=== PATIENT | female | born 1960 | race Caucasian/White ===

== ENCOUNTER 2018-08-08 07:15 | Inpatient (IN) | payer BC ==
[2018-07-26 15:47] VITALS: BMI 28.8
[~2018-08-08 07:15] MED LIST: ACETAMINOPHEN TAB 500 MG TAB PO ONE; DEXAMETHASONE SOD PHOSPHATE 10 MG/ML 1 ML VIAL IV ONE; HYDROmorphone 0.5 MG/0.5 ML SYRINGE IVP PRN; LIDOCAINE 1% 20 ML VIAL (10MG/ML) FOR IV START INTRADERMA PRN; MELOXICAM 7.5 MG TAB PO ONE; MIDAZOLAM (PF) 2 MG/2 ML VIAL IV PRN; ONDANSETRON 4 MG/2 ML VIAL IVP ONE; ROPIVACAINE 246.25 MG, EPINEPHrine 0.5 MG, KETOROLAC 30 MG, cloNIDine HCL/PF 80 MCG, WA... MISCELLANE ONE; SCOPOLAMINE 1.5MG/72HR PATCH TRANSDERM ONE; TRANEXAMIC ACID 1,000 MG in SODIUM CHLORIDE 0.9% 100 ML IVPB ONE; ceFAZolin IN SWFI 2 GM/20 ML SYRINGE IVP ONE
[2018-08-08 08:07] VITALS: RESP 16
[2018-08-08] MEDS: LACTATED RINGERS 1,000 ML IV SCH (08:20)
[2018-08-08] MEDS ORDERED: LIDOCAINE 1% 20 ML VIAL (10MG/ML) FOR IV START SQ ONE (08:21)
[2018-08-08] MEDS ORDERED: HYDROmorphone 0.5 MG/0.5 ML SYRINGE IVP PRN ×2 (08:46)
[2018-08-08] MEDS ORDERED: DIAZEPAM 5 MG TAB PO PRN (08:46)
[2018-08-08] MEDS ORDERED: HYDROcodone/APAP 5-325MG 1 EACH TAB PO PRN (08:46)
[2018-08-08] MEDS ORDERED: NALOXONE 0.4 MG/ML 1 ML VIAL IV PRN (08:46)
[2018-08-08] MEDS ORDERED: ONDANSETRON 4 MG/2 ML VIAL IVP PRN (08:46)
[2018-08-08] MEDS ORDERED: hydrOXYzine PAMOATE 25 MG CAP PO PRN (08:46)
[2018-08-08] MEDS ORDERED: HYDROmorphone 1 MG/ML 1 ML SYRINGE IVP PRN (08:46)
[2018-08-08] MEDS ORDERED: MAGNESIUM HYDROXIDE 2,400 MG/10 ML CUP PO PRN (08:46)
[2018-08-08] MEDS ORDERED: SODIUM CHLORIDE 0.9% 1,000 ML IV SCH (09:00)
[2018-08-08] MEDS ORDERED: HEPARIN SODIUM,PORCINE 5,000 UNIT/ML 1 ML VIAL ONE (09:15)
[2018-08-08] MEDS ORDERED: MIDAZOLAM 2 MG/2 ML VIAL ONE (09:15)
[2018-08-08] MEDS ORDERED: fentaNYL (PF) 50 MCG/ML 2 ML AMP ONE (09:15)
[2018-08-08] MEDS ORDERED: SODIUM CHLORIDE 0.9% 100 ML BAG ONE (09:15)
[2018-08-08] MEDS ORDERED: PHENYLEPHRINE-0.9% NACL SYG 1 MG/10 ML SYRINGE ONE (09:15)
[2018-08-08] MEDS ORDERED: TRANEXAMIC ACID 1,000 MG/10 ML VIAL ONE (09:15)
[2018-08-08] MEDS ORDERED: LIDOCAINE 1% INJ 10MG/ML (20 ML MDV) ONE (09:15)
[2018-08-08] MEDS ORDERED: PROPOFOL 10 MG/ML 20 ML VIAL IV ONE (09:15)
[2018-08-08] MEDS ORDERED: LACTATED RINGERS 1,000 ML BAG IV ONE (09:15)
[2018-08-08] MEDS ORDERED: ceFAZolin 3,000 MG in SODIUM CHLORIDE 0.9% IRRIGATIO 3,000 ML IRRIGATION ONE (09:20)
[2018-08-08] MEDS ORDERED: LACTATED RINGERS 1,000 ML IV ONE (10:00)
--- NOTE | 2018-08-08 10:35 | P.OP ---
Date of Procedure: 08/08/18 Preoperative Diagnosis: Severe osteoarthritis right hip Postoperative Diagnosis: Severe osteoarthritis right hip Procedure(s) Performed: Right total hip arthroplasty with a direct anterior approach Implants: Ponce and nephew Polarstem size 4 standard Ponce & Nephew R3, 3 hole acetabular shell, 48 mm Ponce & Nephew reflection 6.5 mm cancellus screw, 20 mm, 25 mm Ponce & Nephew R3, XLPE 20 acetabular liner Ponce & Nephew Oxinium femoral head 32 m, -3 All components were press-fit. The articulation is Oxinium on polyethylene. Anesthesia: spinal Surgeon: Alireza Wagoner Flyer Repairer #1: Jazmine Walter Estimated Blood Loss (ml): 150 (68 mL returned with Cell Saver) Pathology: other (femoral head) Condition: stable Disposition: PACU Indications for Procedure: After failure of conservative treatment we discussed the surgical and nonsurgical treatment options at length. Patient wishes to proceed with a total hip arthroplasty with a direct anterior approach. Complications specific to this procedure were discussed at length, including but not limited to infection, leg length discrepancy, dislocation, and nerve injury. Patient is aware of all these complications and informed consent was obtained Operative Findings: The operative findings are consistent with severe osteoarthritis of the right hip Description of Procedure: Patient was seen and evaluated in the preoperative area, consent was reviewed, and the surgical site was marked with a skin marker. Patient was then brought to the operating room and given prophylactic antibiotics intravenously. 1 g of Tranexamic acid was also given. A spinal anesthetic was administered by the anesthesia department. The patient was then placed on the [place] table with the bony prominences well-padded. The hip area was then prepped and draped in usual sterile fashion. A universal timeout was then performed, which confirmed the patient's name, surgical site, ALLERGIES, and procedure being performed. Next the incision site was located at 1 cm distal and 1 cm lateral to the anterior superior iliac spine. The skin and subcutaneous tissues were sharply incised. Incision was carefully dissected down to the fascia overlying the tensor fascia micah muscle. This fascia was then incised in line with the incision. Next, using blunt finger dissection, the tensor fascia micah muscle was dissected off its investing fascia. The muscle was then carefully retracted laterally with a cobra retractor over the lateral neck of the femur. Next, the circumflex vessels were identified and cauterized using the AquaMantis device. The anterior hip capsule was then exposed. The capsule was then opened and an inverted T fashion. Cobra retractors were then placed intracapsularly. The proximal femur was then visualized. The femoral neck was then osteotomized appropriate level above the lesser trochanter. Small amount of traction was placed with the [place] table. A small wedge of bone was then removed from the remaining femoral head. Next, using a corkscrew femoral head was easily removed from the acetabulum. On gross visual inspection, the femoral head had complete loss of articular cartilage in multiple periarticular osteophytes. Attention was then turned to the acetabulum. the acetabulum was exposed and any remaining labrum was excised. Sequential reaming of the acetabulum was performed using fluoroscopic guidance. When the appropriate size was reached, a trial was then placed. The position and fit of the trial was checked with fluoroscopy. The trial was then removed. Then, us ing fluoroscopic guidance, the final implant was impacted at 20 of anteversion and 40 of abduction, and fully seated in the acetabulum. 2 screws were then placed in the acetabulum. Again fluoroscopy was used to check position of the screws. Next, the liner was then impacted, with a 20 elevated liner located in the anterior superior quadrant. Component locking was confirmed. Attention was then directed to the femur. With the aid of the [place] table, the femur was externally rotated to approximately 130, extended, and abducted under the opposite leg. A side hook was then placed under the proximal femur, and the side hook elevator was used to elevate the proximal femur. Retractors were then placed. A capsular release was performed, as well as a release of the conjoined tendon, which afforded excellent visualization of the proximal femur. Next, a box osteotome was used to lateralize the proximal femur. A hand mica plate layer was then used to locate the femoral canal. Sequential broaching was then performed with appropriate size which afforded excellent fixation in the proximal femur. A trial was then placed with appropriate head and neck, and the hip was gently reduced with the aid of the [place] table. Fluoroscopy was then used to check position of the components, as well as to ensure equal leg lengths. The hip was then gently dislocated and the trials were then removed. Final implants were then impacted and the hip was again reduced. Final fluoroscopic x-rays confirmed that the components were in anatomic position, as well as equal leg lengths. The hip was also taken through range of motion, and found to be stable. The hip was then copiously irrigated with antibiotic solution with pulsatile lavage. The hip was then irrigated with Irrisept solution. The soft tissues were then injected with a ropivacaine solution, which consisted of 246.25 mg of ropivacaine, 0.5 mg of epinephrine, 30 mg of Toradol, 80 g of clonidine, and 48.45 mL of sterile water, for a total of 100 mL of fluid injected. A second dose of 1 g of Tranexamic acid was also given. the fascia was then closed with 2-0 strata fix suture. The subcutaneous tissue was closed with 3-0 Vicryl. The subcuticular tissue was closed with 3-0 strata fix suture. The skin was then closed with Dermabond glue and a sterile silver dressing. The patient was then transferred to the recovery room in stable condition. The administrative services assistant LÓPEZ Kebede was required due to the complexity of surgery, and the need for skilled assistant professor surgical technology for positioning, draping, exposure, retraction, and closure of the wound.
--- NOTE | 2018-08-08 11:23 | XR ---
EXAMINATION TYPE: XR Hip Limited RT DATE OF EXAM: 08/08/2018 COMPARISON: NONE HISTORY: 58-year-old female status post hip surgery, assess surgical alignment TECHNIQUE: Single AP portable view FINDINGS: Image shows placement of right total arthroplasty. The acetabular cup and femoral stem component of t he prosthesis appear well seated without periprosthetic fracture. Alignment grossly anatomic. Scatter ed soft tissue air compatible with recent operation. IMPRESSION: Uncomplicated postoperative appearance right total hip arthroplasty.
[2018-08-08] MEDS: ASPIRIN 325 MG TAB PO SCH ×2 (12:57→21:51)
--- NOTE | 2018-08-08 13:27 | XR ---
Limited right hip history: Hip replacement 2 intraoperative C-arm images document the procedure
--- NOTE | 2018-08-08 13:28 | FL ---
Fluoroscopy HISTORY: Hip replacement 48 seconds fluoroscopy time supplied to the referring clinician. 2 intraoperative C-arm images docum ent the procedure. See dictated report from orthopedic surgery.
[2018-08-08] MEDS: HYDROcodone/APAP 5-325MG 1 EACH TAB PO PRN ×2 (15:19→21:52)
[2018-08-08] MEDS: ceFAZolin IN SWFI 2 GM/20 ML SYRINGE IVP SCH (16:40)
[2018-08-08] MEDS ORDERED: SENNOSIDES-DOCUSATE SODIUM 1 EACH TAB PO SCH (21:00)
[2018-08-08] MEDS: CALCIUM CARBONATE 500 MG CHEWABLE PO SCH (21:51)
--- NOTE | 2018-08-09 00:17 | CONS ---
CONSULTATION DATE OF SERVICE: 08/08/2018 REASON FOR CONSULTATION: Advice regarding hypertension and hyperlipidemia and other medical issues requested by Dr. Wagoner. HISTORY OF PRESENT ILLNESS: This 58-year-old woman with a past medical history of hyperlipidemia, history of DJD, hypothyroidism, rapid heart rate, anxiety, underwent right total hip joint arthroplasty via direct anterior approach for severe DJD by Dr. Wagoner. There is no history of chest pain. No history of palpitations, headache, loss of consciousness, nausea, vomiting, and diarrhea. The patient had mild relative hypotension after surgery. PAST MEDICAL HISTORY: Hyperlipidemia, history of DJD, hypothyroidism, history of tachycardia. MEDICATIONS: Home medications are: 1. Prednisone eyedrops. 2. [place]-3 fatty acids. 3. Levothyroxine 125 mcg p.o. q.a.m. 4. Anastasiia 500 mg p.o. b.i.d. 5. Calcium 600 mg p.o. b.i.d. ALLERGIES: AMOXICILLIN AND CLAVULANIC ACID. FAMILY HISTORY: History of cancer. Brother leukemia and another brother had throat cancer. SOCIAL HISTORY: Previous history of smoking. Occasional alcohol intake. REVIEW OF SYSTEMS: ENT: No diminished vision. CARDIOVASCULAR : No angina or palpitations. Respiration: No cough. GI no nausea. no dysuria. CENTRAL NERVOUS SYSTEM: No numbness or weakness. ALLERGY/IMMUNOLOGY: No asthma or hayfever. MUSCULOSKELETAL: As mentioned earlier. HEMATOLOGY/ONCOLOGY: No history of anemia. CONSTITUTIONAL: As mentioned earlier. Lymphatics: No lymph nodes palpable in the neck, axillae or groin. Dermatology: Negative. Rheumatology: Negative. Psychiatry: As mentioned earlier. PHYSICAL EXAMINATION: The patient is alert, oriented x3. The pulse is 66, blood pressure 96/60, respirations 16, temperature 97.9, pulse ox 97% on room air. HEENT: Conjunctivae normal. Oral mucosal moist. Neck is no jugular venous distention. No carotid bruit. No lymph node enlargement. Cardiovascular systems: S1, S2. RESPIRATION: Breath sounds diminished in the bases. No rhonchi. No crackles. ABDOMEN: Soft, nontender. No mass palpable. LEGS: Status post hip surgery. NERVOUS SYSTEM: Higher functions as mentioned earlier. Moves all 4 limbs. No focal motor or sensory deficits. Lymphatics: No lymph nodes palpable in the neck, axillae or groin. Skin: No ulcer, rash or bleeding. JOINTS: No active deforming arthropathy. LABS: At this time shows: Labs which are done preop showed a CBC within normal limits. Coags are within normal limits. Chemistry otherwise within normal see. Urine is also normal. ASSESSMENT: 1. Status post right total hip joint arthroplasty. 2. Relative hypotension postoperatively. 3. Hyperlipidemia. 4. Degenerative joint disease. 5. Hypothyroidism. 6. History of cardiac catheterization. 7. History of tachycardia related to possible anxiety. 8. Corneal transplant. 9. Remote history of nicotine dependence. 10.FULL CODE. RECOMMENDATIONS AND DISCUSSION: In this 58-year-old woman who presented after surgery at this time I recommend to continue current medications, management, monitoring, symptomatic treatment and recommend increase the fluids and monitor blood pressure closely. Otherwise resume the home medications. DVT prophylaxis. Incentive spirometry. We will follow the patient closely with you and further recommendations to follow. Also recommend BMP also to ensure normalcy in the morning. Otherwise, the patient may be asked to follow up with primary care physician in the outpatient setting. Thank you, Dr. Wagoner, for letting us participate in the care of this patient. MMODL / IJN: [id number] /
[2018-08-09] MEDS: ceFAZolin IN SWFI 2 GM/20 ML SYRINGE IVP SCH (00:35)
[2018-08-09] MEDS ORDERED: LEVOTHYROXINE 125 MCG TAB PO SCH (06:30)
[2018-08-09] MEDS: HYDROcodone/APAP 5-325MG 1 EACH TAB PO PRN ×2 (07:01→13:09)
[2018-08-09] MEDS: SODIUM CHLORIDE 0.9% 1,000 ML IV SCH ×2 (07:02→11:39)
[2018-08-09 08:06] VITALS: BP 106/68; PULSE 69; TEMP 98.2
[2018-08-09 08:38] LABS: Basophils % (A) 0 %; Eosinophils # (A) 0.1 k/uL (0-0.7); Eosinophils % (A) 1 %; HCT 33.2 % (34.0-46.0); Lymphocytes # (A) 2.1 k/uL (1.0-4.8); Lymphocytes % (A) 22 %; MCH 29.6 pg (25.0-35.0); MCHC 34.5 g/dL (31.0-37.0); MCV 85.9 fL (80.0-100.0); Mean Platelet Volume 7.1; Monocytes # (A) 0.5 k/uL (0-1.0); Monocytes % (A) 5 %; Neutrophils % (A) 71 %; Platelet Count 258 k/uL (150-450); RBC 3.86 m/uL (3.80-5.40); RDW 13.4 % (11.5-15.5); WBC 9.9 k/uL (3.8-10.6)
[2018-08-09 08:42] LABS: HGB 11.5 gm/dL (11.4-16.0)
[2018-08-09 08:43] LABS: Anion Gap 4 mmol/L; Blood Urea Nitrogen 13 mg/dL (7-17); Calcium 8.8 mg/dL (8.4-10.2); Carbon Dioxide 26 mmol/L (22-30); Chloride 108 mmol/L (98-107); Glucose 79 mg/dL (74-99); Potassium 4.2 mmol/L (3.5-5.1); Sodium 138 mmol/L (137-145)
[2018-08-09] MEDS ORDERED: prednisoLONE ACETATE 1% OPHTH DROPS 5 ML BTL LEFT EYE SCH (09:00)
[2018-08-09] MEDS ORDERED: MELOXICAM 7.5 MG TAB PO SCH (09:00)
--- NOTE | 2018-08-09 09:05 | P.DS ---
Providers Date of admission: 08/08/18 07:35 Expected date of discharge: 08/09/18 Attending physician: Alireza Wagoner Consults: 08/08/18 08:46 Consult Physician Routine Consulting Provider: Ava Garza Consult Reason/Comments: medical management Do you want consulting provider notified?: Yes Primary care physician: Stated None - Discharge Diagnosis(es) (1) S/P total hip arthroplasty Current Visit: Yes Status: Acute (2) Osteoarthritis of right hip Current Visit: Yes Status: Acute Hospital Course: This is a 58-year-old female with known history of degenerative arthritis of the right hip. The patient presents for evaluation. After discussion and consideration patient elects to proceed with total hip arthroplasty. The patient is seen preoperatively by Dr. Wagoner and medically cleared for surgery by their primary care physician. Patient is admitted to [facility] on 08/08/2018 for total hip arthroplasty. The procedures performed without complication or sequelae. The patient is doing well postoperatively. Labs and vital signs are stable on day of discharge. On day of discharge patient's hip incision is healing well. There is minimal erythema. There is no drainage noted at this time. There is minimal soft tissue swelling to the hip and thigh. Patient has full foot and ankle motion without difficulty or pain. Calf is soft and nontender to palpation. Neurovascular status to the right lower extremity is intact. Patient is discharged home in good condition. Opioid start talking form is reviewed and signed at patient bedside. Please see med rec for accurate list of home medications. Plan - Discharge Summary Discharge Rx Participant: Yes New Discharge Prescriptions: New Aspirin 325 mg PO BID #60 tab HYDROcodone/APAP 5-325MG [[place] 5-325] 1 - 2 tab PO Q6HR PRN #56 tab PRN Reason: Pain Sennosides [Senokot] 1 tab PO BID #60 tablet No Action Levothyroxine Sodium 125 mcg PO QAM [place]-3 Fatty Acids [[place]-3] 1,000 mg PO BID Anastasiia 500 mg PO BID Calcium Carbonate [Calcium] 600 mg PO BID Prednisolone Acetate/Pf [Prednisolone Acet 1% Eye Drop] 1 drop LEFT EYE DAILY Discharge Medication List Calcium Carbonate [Calcium] 600 mg PO BID 07/26/18 [History] Anastasiia 500 mg PO BID 07/26/18 [History] Levothyroxine Sodium 125 mcg PO QAM 07/26/18 [History] [place]-3 Fatty Acids [[place]-3] 1,000 mg PO BID 07/26/18 [History] Prednisolone Acetate/Pf [Prednisolone Acet 1% Eye Drop] 1 drop LEFT EYE DAILY 08/08/18 [History] Aspirin 325 mg PO BID #60 tab 08/09/18 [Rx] HYDROcodone/APAP 5-325MG [[place] 5-325] 1 - 2 tab PO Q6HR PRN #56 tab 08/09/18 [Rx] Sennosides [Senokot] 1 tab PO BID #60 tablet 08/09/18 [Rx] Follow up Appointment(s)/Referral(s): Alireza Wagoner DO [Doctor of Osteopathic Medicine] - 2 Weeks Activity/Diet/Wound Care/Special Instructions: Weightbearing as tolerated with walker. Leave dressing intact. Dressing may be removed by home care nurse or by patient in 10 days. May shower with dressing on. Please follow-up with [facility] in 2 weeks and call with any questions or concerns, . Discharge Disposition: HOME WITH HOME HEALTH SERVICES
[2018-08-09] MEDS: LACTATED RINGERS 1,000 ML IV SCH (09:33)
[2018-08-09] MEDS: ASPIRIN 325 MG TAB PO SCH (10:21)
[2018-08-09] MEDS: CALCIUM CARBONATE 500 MG CHEWABLE PO SCH (10:23)
--- NOTE | 2018-08-09 18:26 | PN ---
PROGRESS NOTE DATE OF SERVICE: 08/09/2018 This 58-year-old woman who was admitted after right total hip joint arthroplasty also had relative hypotension postoperatively. The patient received IV fluids, which improved the blood pressure. No chest pain. No palpitations. No fever. On exam, alert and oriented x3. The pulse is 69, blood pressure 106/68, respiration 20, temperature 98.2, pulse ox 94% on room air. HEENT: Conjunctivae normal. NECK: No jugular venous distention. CARDIOVASCULAR SYSTEM: S1, S2 muffled. RESPIRATORY SYSTEM: Breath sounds diminished at the bases. No rhonchi. No crackles. ABDOMEN: Soft, non-tender. NERVOUS SYSTEM: No focal deficit. LEGS: Status post surgery. LABS: WBC 9.8, hemoglobin 11.5, sodium 138, potassium 4.2. ASSESSMENT: 1. Status post right total hip joint arthroplasty. 2. Mild relative hypotension postoperatively, improved. 3. Hyperlipidemia. 4. Degenerative joint disease. 5. Hypothyroidism. 6. History of cardiac catheterization. 7. History of tachycardia related to anxiety. 8. History of corneal transplant. 9. Remote history of nicotine dependence. 10.FULL CODE. RECOMMENDATIONS AND DISCUSSION: I recommend to continue current medications, continue with the monitoring, symptomatic treatment. Otherwise at this time I would recommend close monitoring at home and follow up with the primary physician in the outpatient setting. Further recommendations to follow. MMODL / IJN: [id number] /
== END 2018-08-09 15:10 | disposition home health service (06) | DRG 470 ==
LOC: 2ORMAIN 07:35 → 4SSUR 11:32
PROVIDERS: ADMIT Orthopaedic Surgery; ATTEND Orthopaedic Surgery
PROC: 0SR906A Replacement of Right Hip Joint with Oxidized Zirconium on Polyethylene Synthetic Substitute, Uncemented, Open Approach (ICD-10-PCS; principal; 2018-08-08 09:15)
DX: M16.11 Unilateral primary osteoarthritis, right hip (principal); E03.9 Hypothyroidism, unspecified; E78.5 Hyperlipidemia, unspecified; F41.9 Anxiety disorder, unspecified; I10 Essential (primary) hypertension; Z80.6 Family history of leukemia; Z87.891 Personal history of nicotine dependence; I95.81 Postprocedural hypotension; Z80.8 Family history of malignant neoplasm of other organs or systems; Z94.7 Corneal transplant status; Z88.0 Allergy status to penicillin; Z88.8 Allergy status to other drugs, medicaments and biological substances; Z79.890 Hormone replacement therapy
CPT/HCPCS: 73501; 80048; 85025; 86850; 86891; 86900; 86901; 88300

== ENCOUNTER → 2019-03-15 | Outpatient (CLI) | payer BC ==
[2019-03-15 12:50] LABS: INR 0.9 (<1.2); Partial Thromboplastin Time 24.7 sec (22.0-30.0); Prothrombin Time 10.1 sec (9.0-12.0)
[2019-03-15 12:51] LABS: HCT 45.8 % (34.0-46.0); HGB 14.9 gm/dL (11.4-16.0); MCH 28.2 pg (25.0-35.0); MCHC 32.7 g/dL (31.0-37.0); MCV 86.4 fL (80.0-100.0); Mean Platelet Volume 6.5; Platelet Count 343 k/uL (150-450); WBC 6.9 k/uL (3.8-10.6)
[2019-03-15 12:54] LABS: Appearance,Urine Clear (Clear); Bilirubin,Urine Negative (Negative); Blood,Urine Negative (Negative); Color,Urine Colorless; Glucose,Urine (UA) Negative (Negative); Ketones,Urine Negative (Negative); Leukocyte Esterase,Urine Negative (Negative); Nitrite,Urine Negative (Negative); Protein,Urine Negative (Negative); Specific Gravity,Urine 1.004 (1.001-1.035); Urobilinogen,Urine <2.0 mg/dL (<2.0)
[2019-03-15 19:39] LABS: African American GFR (CKD) 94.9 (60.0-200.0); Albumin 4.5 g/dL (3.80-4.90); Albumin/Globulin Ratio 2.65 (1.60-3.17); Anion Gap 7.8 mmol/L (4.00-12.00); BUN/Creat Ratio 16.25 Ratio (12.00-20.00); Calcium 9.7 mg/dL (8.7-10.3); Carbon Dioxide 27.2 mmol/L (21.6-31.8); Globulin 1.7 g/dL (1.6-3.3); Potassium 4.3 mmol/L (3.5-5.5); Total Bilirubin 0.8 mg/dL (0.3-1.2); Total Protein 6.2 g/dL (6.2-8.2)
== END | disposition home or self-care (01) ==
LOC: LABWHC1 10:56
PROVIDERS: ATTEND Orthopaedic Surgery
DX: Z01.812 Encounter for preprocedural laboratory examination (principal)
CPT/HCPCS: 36415; 80053; 81003; 85027; 85610; 85730; 87070

== ENCOUNTER → 2019-03-15 | Outpatient (CLI) | payer BC ==
[2019-03-15 19:47] LABS: Chol/HDL Ratio 3.12; LDL Cholesterol,Calculated 119.4 mg/dL (0.0-131.0); VLDL Calculation 22.6 mg/dL (5.00-40.00)
== END | disposition home or self-care (01) ==
LOC: LABWHC1 11:02
PROVIDERS: ATTEND Physician Assistant
DX: E78.2 Mixed hyperlipidemia (principal); R53.83 Other fatigue
CPT/HCPCS: 80061; 84443

== ENCOUNTER 2019-03-26 05:32 | Inpatient (IN) | payer BC ==
[2019-03-21 09:42] VITALS: BMI 28.1
[~2019-03-26 05:32] MED LIST changes: +GABAPENTIN 300 MG CAP PO ONE; -HYDROmorphone 0.5 MG/0.5 ML SYRINGE IVP PRN; -LIDOCAINE 1% 20 ML VIAL (10MG/ML) FOR IV START INTRADERMA PRN; -MIDAZOLAM (PF) 2 MG/2 ML VIAL IV PRN; -ONDANSETRON 4 MG/2 ML VIAL IVP ONE; -ROPIVACAINE 246.25 MG, EPINEPHrine 0.5 MG, KETOROLAC 30 MG, cloNIDine HCL/PF 80 MCG, WA... MISCELLANE ONE; -SCOPOLAMINE 1.5MG/72HR PATCH TRANSDERM ONE; -ceFAZolin IN SWFI 2 GM/20 ML SYRINGE IVP ONE
[2019-03-26] MEDS ORDERED: ROPIVACAINE 246.25 MG, EPINEPHrine 0.5 MG, KETOROLAC 30 MG, cloNIDine HCL/PF 80 MCG, WA... MISCELLANE ONE ×5 (06:00)
[2019-03-26] MEDS: LACTATED RINGERS 1,000 ML IV SCH ×2 (06:20→23:19)
[2019-03-26] MEDS ORDERED: fentaNYL (PF) 50 MCG/ML 2 ML AMP ONE (06:55)
[2019-03-26] MEDS ORDERED: PROPOFOL 10 MG/ML 20 ML VIAL IV ONE (06:55)
[2019-03-26] MEDS ORDERED: TRANEXAMIC ACID 1,000 MG/10 ML VIAL ONE (06:55)
[2019-03-26] MEDS ORDERED: HEPARIN SODIUM,PORCINE 10,000 UNIT/ML 1 ML VIAL ONE (06:55)
[2019-03-26] MEDS ORDERED: MIDAZOLAM 2 MG/2 ML VIAL ONE (06:55)
[2019-03-26] MEDS ORDERED: SODIUM CHLORIDE 0.9% 100 ML BAG ONE (06:55)
[2019-03-26] MEDS ORDERED: LACTATED RINGERS 1,000 ML BAG IV ONE (06:55)
[2019-03-26] MEDS ORDERED: HYDROcodone/APAP 5-325MG 1 EACH TAB PO PRN (06:59)
[2019-03-26] MEDS ORDERED: hydrOXYzine PAMOATE 25 MG CAP PO PRN (06:59)
[2019-03-26] MEDS ORDERED: ONDANSETRON 4 MG/2 ML VIAL IVP PRN (06:59)
[2019-03-26] MEDS ORDERED: MAGNESIUM HYDROXIDE 2,400 MG/10 ML CUP PO PRN (06:59)
[2019-03-26] MEDS ORDERED: HYDROmorphone 0.5 MG/0.5 ML SYRINGE IVP PRN ×3 (06:59→22:14)
[2019-03-26] MEDS ORDERED: NALOXONE 0.4 MG/ML 1 ML VIAL IV PRN (06:59)
[2019-03-26] MEDS ORDERED: HYDROmorphone 1 MG/ML 1 ML SYRINGE IVP PRN (06:59)
[2019-03-26] MEDS ORDERED: DIAZEPAM 5 MG TAB PO PRN (06:59)
[2019-03-26] MEDS ORDERED: LACTATED RINGERS 1,000 ML IV ONE (08:27)
--- NOTE | 2019-03-26 08:33 | XR ---
EXAMINATION TYPE: XR Hip Limited LT, FL guidance operating room DATE OF EXAM: 03/26/2019 CLINICAL HISTORY: Left anterior hip replacement TECHNIQUE: Fluoroscopy. COMPARISON: None. FINDINGS: Fluoroscopic guidance was provided during procedure performed by Dr. Wagoner. A total of 54 seconds of fluoroscopic time was utilized during the procedure and 2 spot images was acquired. IMPRESSION: As Above.
--- NOTE | 2019-03-26 08:36 | P.OP ---
Date of Procedure: 03/26/19 Preoperative Diagnosis: Severe osteoarthritis left hip Postoperative Diagnosis: Severe osteoarthritis left hip Procedure(s) Performed: Left total hip arthroplasty with a direct anterior approach Implants: Ponce and nephew Polarstem size 6 standard Ponce & Nephew R3, 3 hole acetabular shell, 48 mm Ponce & Nephew reflection 6.5 mm cancellus screw, 20 mm 2 Ponce & Nephew R3, XLPE 20 acetabular liner Ponce & Nephew Oxinium femoral head 32 m, -3 All components were press-fit. The articulation is Oxinium on polyethylene. Anesthesia: spinal Surgeon: Alireza Wagoner Summer Child Caregiver #1: Jazmine Walter Estimated Blood Loss (ml): 100 Pathology: other (Femoral head) Condition: stable Disposition: PACU Indications for Procedure: After failure of conservative treatment we discussed the surgical and nonsurgical treatment options at length. Patient wishes to proceed with a total hip arthroplasty with a direct anterior approach. Complications specific to this procedure were discussed at length, including but not limited to infection, leg length discrepancy, dislocation, and nerve injury. Patient is aware of all these complications and informed consent was obtained Operative Findings: The operative findings are consistent with severe osteoarthritis of the left hip Description of Procedure: Patient was seen and evaluated in the preoperative area, consent was reviewed, and the surgical site was marked with a skin marker. Patient was then brought to the operating room and given prophylactic antibiotics intravenously. 1 g of Tranexamic acid was also given. A spinal anesthetic was administered by the anesthesia department. The patient was then placed on the [place] table with the bony prominences well-padded. The hip area was then prepped and draped in usual sterile fashion. A universal timeout was then performed, which confirmed the patient's name, surgical site, ALLERGIES, and procedure being performed. Next the incision site was located at 1 cm distal and 1 cm lateral to the anterior superior iliac spine. The skin and subcutaneous tissues were sharply incised. Incision was carefully dissected down to the fascia overlying the tensor fascia micah muscle. This fascia was then incised in line with the incision. Next, using blunt finger dissection, the tensor fascia micah muscle was dissected off its investing fascia. The muscle was then carefully retracted laterally with a cobra retractor over the lateral neck of the femur. Next, the circumflex vessels were identified and cauterized using the AquaMantis device. The anterior hip capsule was then exposed. The capsule was then opened and an inverted T fashion. Cobra retractors were then placed intracapsularly. The proximal femur was then visualized. The femoral neck was then osteotomized appropriate level above the lesser trochanter. Small amount of traction was placed with the [place] table. A small wedge of bone was then removed from the remaining femoral head. Next, using a corkscrew femoral head was easily removed from the acetabulum. On gross visual inspection, the femoral head had complete loss of articular cartilage in multiple periarticular osteophytes. Attention was then turned to the acetabulum. the acetabulum was exposed and any remaining labrum was excised. Sequential reaming of the acetabulum was performed using fluoroscopic guidance. When the appropriate size was reached, a trial was then placed. The position and fit of the trial was checked with fluoroscopy. The trial was then removed. Then, using fluoroscopic guidance, the final implant was impacted at 20 of anteversion and 40 of abduction, and fully seated in the acetabulum. 2 screws were then placed in the acetabulum. Again fluoroscopy was used to check position of the screws. Next, the liner was then impacted, with a 20 elevated liner located in the anterior superior quadrant. Component locking was confirmed. Attention was then directed to the femur. With the aid of the [place] table, the femur was externally rotated to approximately 130, extended, and abducted under the opposite leg. A side hook was then placed under the proximal femur, and the side hook elevator was used to elevate the proximal femur. Retractors were then placed. A capsular release was performed, as well as a release of the conjoined tendon, which afforded excellent visualization of the proximal femur. Next, a box osteotome was used to lateralize the proximal femur. A crop ranch hand was then used to locate the femoral canal. Sequential broaching was then performed with appropriate size which afforded excellent fixation in the proximal femur. A trial was then placed with appropriate head and neck, and the hip was gently reduced with the aid of the [place] table. Fluoroscopy was then used to check position of the components, as well as to ensure equal leg lengths. The hip was then gently dislocated and the trials were then removed. Final implants were then impacted and the hip was again reduced. Final fluoroscopic x-rays confirmed that the components were in anatomic position, as well as equal leg lengths. The hip was also taken through range of motion, and found to be s table. The hip was then copiously irrigated with antibiotic solution with pulsatile lavage. The hip was then irrigated with Irrisept solution. The soft tissues were then injected with a ropivacaine solution, which consisted of 246.25 mg of ropivacaine, 0.5 mg of epinephrine, 30 mg of Toradol, 80 g of clonidine, and 48.45 mL of sterile water, for a total of 100 mL of fluid injected. A second d ose of 1 g of Tranexamic acid was also given. the fascia was then closed with 2-0 strata fix suture. The subcutaneous tissue was closed with 3-0 Vicryl. The subcuticular tissue was closed with 3-0 strata fix suture. The skin was then closed with Dermabond glue and a sterile silver dressing. The patient was then transferred to the recovery room in stable condition. The assistant athletic trainer LÓPEZ Kebede was required due to the complexity of surgery, and the need for skilled photo studio assistant for positioning, draping, exposure, retraction, and closure of the wound.
--- NOTE | 2019-03-26 09:10 | XR ---
EXAMINATION TYPE: XR Hip Limited LT DATE OF EXAM: 03/26/2019 CLINICAL HISTORY: Left hip pain and osteoarthritis. TECHNIQUE: Single AP portable view of left hip is obtained immediately postoperatively. COMPARISON: None. FINDINGS: Metallic hardware from left hip arthroplasty is seen and appears satisfactory in alignment and position. There is evidence of recent surgery with subcutaneous gas noted laterally. IMPRESSION: Metallic hardware from left hip arthroplasty is satisfactory in position.
[2019-03-26] MEDS: SODIUM CHLORIDE 0.9% 1,000 ML IV SCH ×2 (10:05→23:20)
--- NOTE | 2019-03-26 11:00 | P.CONS ---
History of Present Illness - Reason for Consult Consult date: 03/26/19 Hypothyroidism Requesting physician: Alireza Wagoner - Chief Complaint hip pain - History of Present Illness He is a 58-year-old female with past medical history of osteoarthritis and degenerative joint disease with prior right total hip arthroplasty, shingles, dyslipidemia, and hypothyroidism who presented for elective left total hip arthroplasty. Patient underwent procedure without any immediate postoperative complications. We have been asked to consult for management of her hypothyroidism. Patient seen and examined at bedside. She states that her pain is well controlled postoperatively. She denies any postoperative headache, nausea, vomiting, or shortness of breath. She's been her typical state of health prior to her procedure. She has been having chronic left hip pain that failed conservative measures should she elected for hip arthroplasty. She denies any recent cough, cold, fever, flu, nausea, or vomiting. Her only recent changes in medications were the addition of her statin and up titration of her levothyroxine in December 2018. Review of Systems Pertinent positives and negatives as discussed in HPI, a complete review of systems was performed and all other systems are negative. Past Medical History Past Medical History: Hyperlipidemia, Osteoarthritis (OA), Thyroid Disorder Additional Past Medical History / Comment(s): Hypothyroidism, tachycardia, Hx Shingles 12/2017. History of Any Multi-Drug Resistant Organisms: None Reported Past Surgical History: Heart Catheterization, Hysterectomy, Joint Replacement Additional Past Surgical History / Comment(s): Left corneal transplant, in vitro procedure, right hip replacement. Past Anesthesia/Blood Transfusion Reactions: Postoperative Nausea & Vomiting (PONV) Additional Past Anesthesia/Blood Transfusion Reaction / Comm: "Extreme PONV." Past Psychological History: No Psychological Hx Reported Smoking Status: Former smoker Past Alcohol Use History: Occasional Additional Past Alcohol Use History / Comment(s): Quit smoking 27 yrs ago, smoked 11 yrs. Past Drug Use History: None Reported Additional History: Works as a sales secretary. No assistive devices. - Past Family History Brother(s) Family Medical History: Cancer Additional Family Medical History / Comment(s): 1 brother with leukemia and 1 brother with throat cancer. Medications and Allergies Home Medications Medication Instructions Recorded Confirmed Type Calcium Carbonate [Calcium] 600 mg PO BID 07/26/18 03/21/19 History Anastasiia 500 mg PO BID 07/26/18 03/21/19 History [place]-3 Fatty Acids [[place]-3] 1,000 mg PO BID 07/26/18 03/21/19 History Prednisolone Acetate/Pf 1 drop LEFT EYE DAILY 08/08/18 03/21/19 History [Prednisolone Acet 1% Eye Drop] Levothyroxine Sodium 150 mcg PO QAM 03/21/19 03/21/19 History Simvastatin [Zocor] 20 mg PO QAM 03/21/19 03/21/19 History Allergies Allergy/AdvReac Type Severity Reaction Status Date / Time amoxicillin [From Augmentin] Allergy Unknown Verified 03/26/19 05:51 clavulanic acid Allergy Unknown Verified 03/26/19 05:51 [From Augmentin] Physical Exam Osteopathic Statement: *. No significant issues noted on an osteopathic structural exam other than those noted in the History and Physical/Consult. Vitals: Vital Signs Temp Pulse Pulse Resp BP BP BP 03/26/19 10:24 16 03/26/19 09:15 67 16 105/60 03/26/19 09:00 66 16 102/53 03/26/19 08:43 97.2 F L 90 16 103/58 03/26/19 06:00 97.5 F L 76 16 145/77 Pulse Ox 03/26/19 10:24 03/26/19 09:15 96 03/26/19 09:00 95 03/26/19 08:43 96 03/26/19 06:00 98 Intake and Output 03/25/19 03/26/19 03/26/19 22:59 06:59 14:59 Intake Total 200 1150 Output Total 100 Balance 200 1050 Intake: IV 200 1150 Output: Estimated Blood Loss 100 Other: Weight 85.729 kg General: non toxic, no distress, appears at stated age, normal weight Derm: no unusual rashes/lesions no unusual ecchymoses, warm, dry Head: atraumatic, normocephalic, symmetric Eyes: EOMI, no lid lag, anicteric sclera, Nol lid lesions ENT: Nose and ears atraumatic, no thrush, no pharyngeal erythema Neck: No thyromegaly, no cervical lymphadenopathy, trachea midline, supple Mouth: no lip lesion, mucus membranes moist Cardiovascular: S1S2 reg, no murmur, positive posterior tibial pulse bilateral, no edema, capillary refill less than 2 seconds Lungs: decreased breath sounds bilateral, no rhonchi, no rales , no accessory muscle use Abdominal: soft, nontender to palpation, no guarding, no appreciable organomegaly, normal bowel sounds Ext: no gross muscle atrophy, muscle strength 5 out of 5 in upper extremities grossly, no contractures, Neuro: CN II-XI grossly intact, light touch intact all 4 extremities, finger to nose within normal limits, Psych: Alert, oriented, appropriate affect Assessment and Plan Assessment: Patient is a 58-year-old female here for left total hip arthroplasty. Pain control per ortho, DVT prophylaxis per ortho, PT/OT evaluation Hypothyroidism -Continue levothyroxine Dyslipidemia -Continue statin therapy Arthritis -Pain control Thank you for allowing us to participate in the care of this patient. Do not hesitate to contact us with questions. Someone can be reached from the [facility] hospitalist group at all hours of the day at [phone].
[2019-03-26] MEDS: HYDROcodone/APAP 5-325MG 1 EACH TAB PO PRN ×2 (13:07→19:39)
[2019-03-26] MEDS: ASPIRIN 325 MG TAB PO SCH (20:35)
[2019-03-26] MEDS ORDERED: NON FORMULARY DRUG (Omega-3 Fatty Acids [Omega-3] 1,000 MG) PO SCH (21:00)
[2019-03-26] MEDS ORDERED: SENNOSIDES-DOCUSATE SODIUM 1 EACH TAB PO SCH (21:00)
[2019-03-26] MEDS ORDERED: MIDAZOLAM 2 MG/2 ML VIAL IV PRN (22:14)
[2019-03-26] MEDS ORDERED: LIDOCAINE 1% 20 ML VIAL (10MG/ML) FOR IV START INTRADERMA PRN (22:14)
[2019-03-26] MEDS ORDERED: fentaNYL (PF) 50 MCG/ML 2 ML AMP IV PRN (22:14)
[2019-03-26] MEDS ORDERED: ONDANSETRON 4 MG/2 ML VIAL IVP ONE (22:14)
[2019-03-27] MEDS: HYDROcodone/APAP 5-325MG 1 EACH TAB PO PRN ×2 (01:12→06:19)
[2019-03-27] MEDS ORDERED: LEVOTHYROXINE 75 MCG TAB PO SCH (06:30)
[2019-03-27 07:32] LABS: Basophils % (A) 0 %; Eosinophils % (A) 0 %; HCT 33.7 % (34.0-46.0); Lymphocytes # (A) 2.1 k/uL (1.0-4.8); Lymphocytes % (A) 21 %; MCH 29.6 pg (25.0-35.0); Mean Platelet Volume 6.1; Monocytes # (A) 0.5 k/uL (0-1.0); Monocytes % (A) 5 %; Neutrophils # (A) 7.3 k/uL (1.3-7.7); Neutrophils % (A) 72 %; Platelet Count 229 k/uL (150-450); RBC 3.87 m/uL (3.80-5.40); WBC 10.1 k/uL (3.8-10.6)
[2019-03-27 07:40] VITALS: PULSE 73; RESP 16; TEMP 97.8
[2019-03-27 07:40] LABS: HGB 11.5 gm/dL (11.4-16.0)
[2019-03-27] MEDS: ASPIRIN 325 MG TAB PO SCH (08:09)
[2019-03-27] MEDS ORDERED: prednisoLONE ACETATE 1% OPHTH DROPS 5 ML BTL LEFT EYE SCH (09:00)
[2019-03-27] MEDS ORDERED: MELOXICAM 7.5 MG TAB PO SCH (09:00)
[2019-03-27] MEDS ORDERED: ATORVASTATIN 10 MG TAB PO SCH (09:00)
[2019-03-27 09:27] VITALS: BP 95/59
--- NOTE | 2019-03-27 09:31 | P.DS ---
Providers Date of admission: 03/26/19 05:32 Expected date of discharge: 03/27/19 Attending physician: Alireza Wagoner Consults: 03/26/19 06:59 Consult Physician Routine Consulting Provider: Amelie Castillo Consult Reason/Comments: medical management Do you want consulting provider notified?: Yes Primary care physician: Stated None - Discharge Diagnosis(es) (1) Osteoarthritis of left hip Current Visit: Yes Status: Acute (2) S/P total hip arthroplasty Current Visit: No Status: Acute Hospital Course: This is a 58-year-old female with known history of degenerative arthritis of the left hip. The patient presents for evaluation. After discussion and consideration patient elects to proceed with total hip arthroplasty. The patient is seen preoperatively by Dr. Wagoner and medically cleared for surgery by their primary care physician. Patient is admitted to [facility] on 03/26/2019 for total hip arthroplasty. The procedures performed without complication or sequelae. The patient is doing well postoperatively. Labs and vital signs are stable on day of discharge. On day of discharge patient's hip incision is healing well. There is minimal erythema. There is no drainage noted at this time. There is minimal soft tissue swelling to the hip and thigh. Patient has full foot and ankle motion without difficulty or pain. Calf is soft and nontender to palpation. Neurovas cular status to the left lower extremity is intact. Patient is discharged home in good condition. Patient states that she has pain medication at home that she plans to take postoperatively. Please see med rec for accurate list of home medications. Plan - Discharge Summary Discharge Rx Participant: No New Discharge Prescriptions: New Aspirin 325 mg PO BID #60 tab No Action [place]-3 Fatty Acids [[place]-3] 1,000 mg PO BID Anastasiia 500 mg PO BID Calcium Carbonate [Calcium] 600 mg PO BID Prednisolone Acetate/Pf [Prednisolone Acet 1% Eye Drop] 1 drop LEFT EYE DAILY Levothyroxine Sodium 150 mcg PO QAM Simvastatin [Zocor] 20 mg PO QAM Discharge Medication List Calcium Carbonate [Calcium] 600 mg PO BID 07/26/18 [History] Anastasiia 500 mg PO BID 07/26/18 [History] [place]-3 Fatty Acids [[place]-3] 1,000 mg PO BID 07/26/18 [History] Prednisolone Acetate/Pf [Prednisolone Acet 1% Eye Drop] 1 drop LEFT EYE DAILY 08/08/18 [History] Levothyroxine Sodium 150 mcg PO QAM 03/21/19 [History] Simvastatin [Zocor] 20 mg PO QAM 03/21/19 [History] Aspirin 325 mg PO BID #60 tab 03/27/19 [Rx] Follow up Appointment(s)/Referral(s): Alireza Wagoner DO [Doctor of Osteopathic Medicine] - 04/11/19 2:20 pm Activity/Diet/Wound Care/Special Instructions: Weightbearing as tolerated with walker. Leave dressing intact. Dressing may be removed by home care nurse or by patient in 10 days. May shower with dressing on. Recommend use of compression stockings daily for at least 2 weeks during the day to help prevent swelling and blood clots. May remove at night before sleeping. Please follow-up with [facility] in 2 weeks and call with any questions or concerns, . Discharge Disposition: HOME WITH HOME HEALTH SERVICES
--- NOTE | 2019-03-27 20:31 | P.PN ---
Subjective Progress Note Date: 03/27/19 (delayed charting seen at approximately 1000) Principal diagnosis: hip pain patient seen and examined at bedside. Pain is well controlled. Worked with physical therapy without difficulty. No chest pain, shortness breath, nausea, or vomiting. Does not struggle with heartburn typically. Given information that she can use [id number] Pepcid or Protonix should she develop any dyspepsia while taking aspirin twice daily. Objective - Vital Signs Vital signs: Vital Signs Temp 97.8 F 03/27/19 07:00 Pulse 73 03/27/19 07:00 Resp 16 03/27/19 07:30 BP 95/59 03/27/19 09:27 Pulse Ox 96 03/27/19 07:00 Intake & Output 03/27/19 03/27/19 03/28/19 06:59 18:59 06:59 Other: Voiding Method Toilet Toilet # Voids 3 - Exam General: non toxic, no distress, appears at stated age Derm: warm, dry Head: atraumatic, normocephalic, symmetric Eyes: EOMI, no lid lag, anicteric sclera Mouth: no lip lesion, mucus membranes moist Cardiovascular: S1S2 reg, no murmur, positive posterior tibial pulse bilateral, Lungs: CTA bilateral, no rhonchi, no rales , no accessory muscle use Psych: Alert, oriented, appropriate affect - Labs CBC & Chem 7: 03/27/19 06:41 Labs: Abnormal Lab Results - Last 24 Hours (Table) 03/27/19 Range/Units 06:41 Hct 33.7 L (34.0-46.0) % Assessment and Plan Assessment: Patient is a 58-year-old female here for left total hip arthroplasty. Pain control per ortho, DVT prophylaxis per ortho, PT/OT evaluation . Option for [id number] Pepcid or prilosec if need for heartburn while of ASA BID added to D/C instructions. Hypothyroidism -Continue levothyroxine Dyslipidemia -Continue statin therapy Arthritis -Pain control Medically stable for discharge
== END 2019-03-27 11:50 | disposition home health service (06) | DRG 470 ==
LOC: 2ORMAIN 05:32 → 4SSUR 08:51
PROVIDERS: ADMIT Orthopaedic Surgery; ATTEND Orthopaedic Surgery
PROC: 0SRB06A Replacement of Left Hip Joint with Oxidized Zirconium on Polyethylene Synthetic Substitute, Uncemented, Open Approach (ICD-10-PCS; principal; 2019-03-26 07:00)
DX: M16.12 Unilateral primary osteoarthritis, left hip (principal); E03.9 Hypothyroidism, unspecified; E78.5 Hyperlipidemia, unspecified; G89.29 Other chronic pain; Z80.6 Family history of leukemia; Z80.8 Family history of malignant neoplasm of other organs or systems; Z87.891 Personal history of nicotine dependence; Z90.710 Acquired absence of both cervix and uterus; Z96.641 Presence of right artificial hip joint; Z79.890 Hormone replacement therapy; Z79.899 Other long term (current) drug therapy; Z88.1 Allergy status to other antibiotic agents; Z88.8 Allergy status to other drugs, medicaments and biological substances
CPT/HCPCS: 73501; 85025; 86850; 86891; 86900; 86901; 88300